=== PATIENT | female | born 1990 | race Caucasian/White ===

== ENCOUNTER 2023-02-05 23:40 | Emergency (ER) | payer MEDICAID, SELFPAY ==
[2023-02-05 23:46] VITALS: BP 137/77; PULSE 93; RESP 16; TEMP 36.8; O2SAT 100; BMI 35.2
[2023-02-05 23:58] LABS: Basophils % 0.4 %; Eosinophils # 0.3 10^3/uL (0.0-0.8); Eosinophils % 3.4 %; Hematocrit 38.2 % (36-47); Lymphocytes # 2.5 10^3/uL (0.8-4.8); Lymphocytes % 24.7 %; Mean Corpuscular Hemoglobin 28.6 pg (27-33); Mean Corpuscular Volume 86.8 fl (85-98); Monocytes # 0.6 10^3/uL (0.2-0.9); Monocytes % 6.5 %; Neutrophils % 64.7 %; Nucleated Red Blood Cells % 0 %; Platelet Count 291 10^3/cmm (157-399); Red Cell Distribution Width 12.5 % (12.1-15.1)
--- NOTE | 2023-02-06 00:02 | W.ED.PREGNAN ---
HPI - General: Chief complaint: OB/Uterine Contractions Stated complaint: vaginal bleeding, 8 weeks Time Seen by Provider: 02/05/23 23:45 Source: patient Mode of arrival: ambulatory Limitations: no limitations History of Present Illness: 32-year-old female currently 8 weeks states that she had some spotting throughout the day but tonight she had had a large amount of bleeding after a shower states she did pass clots as well she is having abdominal cramping she denies any vomiting or diarrhea denies any worsening proving factors. Date of Last Menstrual Period: 12/06/22 Associated symptoms: Reports abdominal pain; Deny headache(s), nausea or vomiting Related Data: : 1 Review of Systems Const: Denies: fever(s), chills, body aches or change in appetite ENMT: Denies: throat pain or dental pain Card: Denies: chest pain Resp: Denies: dyspnea GI: Reports: abdominal pain; Denies: nausea, vomiting or diarrhea : Reports: vaginal bleeding Musc: Denies: neck pain or back pain Skin/Breast: Denies: rash Neuro: Denies: headache(s) Psych: Denies: depression Margarito/Lymph: Denies: easy bruising All/Imm: Denies: urticaria [facility] ED Female Reproductive History: Date of last menstrual period: 12/06/22 : 1 Physical Exam Const: COMMON NORMALS: no acute distress, patient oriented x3 and healthy appearing HENMT: COMMON NORMALS: normocephalic and atraumatic HEAD & SCALP: normocephalic and atraumatic Neck/C-Spine: COMMON NORMALS: full ROM and supple Chest: COMMONS NORMALS: normal inspection of the chest Resp: COMMON NORMALS: normal respiratory effort Cardio: COMMON NORMALS: regular rate, regular rhythm and No murmurs present (Cardio) RATE: regular rate RHYTHM: regular rhythm GI: COMMON NORMALS: Normal to inspection, nondistended, normoactive bowel sounds present, Soft to palpation and no masses INSPECTION: Yes normal to inspection PALPATION: Yes Soft to palpation : OTHER: Cervix is closed no large amount of bleeding noted Extremity: COMMON NORMALS: normal to inspection and full ROM Neuro: COMMON NORMALS: patient oriented x3, moves all extremities and no focal motor deficits Psych: COMMON NORMALS: mental status grossly normal, Normal thought process present and cooperative THOUGHT PROCESS: Normal thought process present Skin: COMMON NORMALS: no rashes or lesions noted and no wounds GENERAL SKIN EXAM: no rashes or lesions noted Course Vital Signs: Vital signs: Vital Signs Temperature 98.3 F 02/05/23 23:46 Pulse Rate 93 02/05/23 23:46 Respiratory Rate 16 02/05/23 23:46 Blood Pressure 137/77 02/05/23 23:46 Pulse Oximetry 100 02/05/23 23:46 Oxygen Delivery Me thod Room Air 02/05/23 23:46 MDM - OB/Uterine Contractions Medical Decision Making Patient presents here with incomplete miscarriage she has had no heavy bleeding on her pelvic exam. Ultrasound showed yolk sac did see an irregular pole no heart rate noted she is to follow-up with her OB Dr. Myers and 3 to 5 days return if she has worsening bleeding. Medical Records I reviewed the patient's medical records. Lab Data I reviewed the patient's lab results. 02/05/23 23:50 Laboratory Results WBC 9.90 10^3/uL (3.29-11.43) 02/05/23 23:50 RBC 4.40 10^6/uL (3.85-5.65) 02/05/23 23:50 Hgb 12.60 g/dL (11.27-16.99) 02/05/23 23:50 Hct 38.2 % (36-47) 02/05/23 23:50 MCV 86.8 fl (85-98) 02/05/23 23:50 MCH 28.6 pg (27-33) 02/05/23 23:50 MCHC 33.0 g/dL (30-55) 02/05/23 23:50 RDW 12.5 % (12.1-15.1) 02/05/23 23:50 Plt Count 291 10^3/cmm (157-399) 02/05/23 23:50 MPV 10.0 fL (7.4-10.4) 02/05/23 23:50 Neut % (Auto) 64.7 % 02/05/23 23:50 Lymph % (Auto) 24.7 % 02/05/23 23:50 [place] % (Auto) 6.5 % 02/05/23 23:50 Eos % (Auto) 3.4 % 02/05/23 23:50 Baso % (Auto) 0.4 % 02/05/23 23:50 Neut # (Auto) 6.40 10^3/uL (1.8-7.7) 02/05/23 23:50 Lymph # (Auto) 2.5 10^3/uL (0.8-4.8) 02/05/23 23:50 [place] # (Auto) 0.6 10^3/uL (0.2-0.9) 02/05/23 23:50 Eos # (Auto) 0.3 10^3/uL (0.0-0.8) 02/05/23 23:50 Baso # (Auto) 0.0 10^3/uL (0.0-0.1) 02/05/23 23:50 Nucleated RBC % (auto) 0 % 02/05/23 23:50 Nucleated RBCs # 0.0 /100WBC 02/05/23 23:50 Ser , Semi-Qnt 77911.00 mIU/mL 02/05/23 23:50 Blood Type A Positive 02/05/23 23:50 Rho(D) Type Positive 02/05/23 23:50 Antibody Screen Negative 02/05/23 23:50 XR interpretation done by ED provider, pending radiology final review Discharge Plan Discharge Patient Disposition: Home Clinical Impression: Miscarriage Condition: Stable Discharge Orders: Discharge ED (Routine); Ordered 02/06/23 Ordered By: Vince Kerr Discharge Diet: Advance as tolerated Discharge Activity: Resume usual activity Patient Instructions: Miscarriage (ED) Coding Level of Care Code ED Radiation Control Specialist for Harsha Oakley
[2023-02-06 01:04] VITALS: BP 119/89; PULSE 81; RESP 16; O2SAT 98
--- NOTE | 2023-02-06 23:56 | USR_ITS ---
PROCEDURE INFORMATION: Exam: US Duplex Artery or Vein of the Abdominal and/or Reproductive Organs, Limited Ovaries Exam date and time: 02/06/2023 12:13 AM Age: 32 years old Clinical indication: Lmp or gestational age (in weeks): 9w 4 d by lmp; Antepartum complications; Bleeding; ; Patient HX: G1-p0 with spotting x 3 days, followed by large gush of blood 1 hour ago. ; Additional info: Miscarriage TECHNIQUE: Imaging protocol: Real-time duplex ultrasound scan of the arterial or venous flow with salazar scale, color Doppler flow and spectral waveform analysis with image documentation. Limited duplex exam focused on the ovaries. Duplex exam was performed to evaluate for torsion and other vascular conditions. COMPARISON: No relevant prior studies available. FINDINGS: Right ovary/adnexa: Normal duplex of the ovary. Normal Doppler waveforms and color flow. No evidence of ovarian torsion. Left ovary/adnexa: Normal duplex of the ovary. Normal Doppler waveforms and color flow. No evidence of ovarian torsion. PROCEDURE INFORMATION: Exam: US First Trimester, Transabdominal and US , Transvaginal Exam date and time: 02/06/2023 12:13 AM Age: 32 years old Clinical indication: Lmp or gestational age (in weeks): 9w 4 d by lmp; Antepartum complications; Bleeding; ; Patient HX: G1-p0 with spotting x 3 days, followed by large gush of blood 1 hour ago. ; Additional info: Miscarriage TECHNIQUE: Imaging protocol: Real-time transabdominal obstetrical ultrasound of the maternal pelvis and a first trimester , less than 14 weeks 0 days, with image documentation. Transvaginal imaging was used for better evaluation of the fetus, adnexa, and/or cervix. COMPARISON: No relevant prior studies available. FINDINGS: Gestation: Intrauterine gestation is mildly heterogenous. Yolk sac is unremarkable. Embryonic/ heart rate: Not clearly detected. Extra-embryonic membranes/Placenta: Unremarkable. No subchorionic bleed. Amniotic fluid: Amniotic fluid and extra-amniotic fluid is normal for gestational age. BIOMETRY: Gestational age (AUA): 6 weeks 5 days with MARY JO of 09/27/2023. pole measures 8 mm, 6 weeks 5 days. MATERNAL: Uterus: Unremarkable. Cervix: Unremarkable. Right ovary/adnexa: Unremarkable ovary. Left ovary/adnexa: Unremarkable ovary. Likely small corpus luteum cyst. Intraperitoneal space: No intraperitoneal free fluid. US/US OB <= 14 weeks fetus [id number] IMPRESSION: Normal duplex of the ovaries. No evidence of ovarian torsion. IMPRESSION: 1. Single potentially nonviable IUP as described, age of about 6 weeks 5 days. The findings are concerning but not definitive. 2. At this time, there is no definite cardiac activity identified. However, there is some color Doppler adjacent to an irregularly shaped pole with a mildly irregular appearance. Advise short-term ultrasound and OB follow-up.
== END 2023-02-06 01:06 | disposition home or self-care (01) ==
PROVIDERS: Emergency Provider Emergency Medicine
DX: O03.4 Incomplete spontaneous abortion without complication (principal)
CPT/HCPCS: 76801; 84702; 85025; 86850; 86900; 99284; E0352

== ENCOUNTER → 2023-02-11 15:20 | Outpatient (BNVA) | payer SELFPAY | PROVIDERS: Visit Provider Obstetrics & Gynecology | DX: O03.4 Incomplete spontaneous abortion without complication (principal) | CPT/HCPCS: 76817 ==

== ENCOUNTER 2023-02-11 17:09 | Emergency (ER) | payer MEDICAID, SELFPAY ==
[2023-02-11 17:26] VITALS: BP 146/74; PULSE 83; RESP 18; TEMP 36.7; O2SAT 99; BMI 39.0
--- NOTE | 2023-02-11 19:34 | W.ED.FEMALGU ---
HPI - Female Genitourinary General: Chief complaint: Abdominal Pain Stated complaint: puking.....just had a Miscarriage Time Seen by Provider: 02/11/23 19:34 Source: patient Mode of arrival: ambulatory Limitations: no limitations History of Present Illness: Patient is a 32-year-old female presents to ED today for evaluation of vaginal bleeding. Patient states she is currently having a miscarriage. She saw her OB provider Dr. Hooker earlier today around 3 PM and had an ultrasound performed. Ultrasound results below: US/US OB transvaginal [id number] IMPRESSION: 1. Findings are suspicious for failed intrauterine , but do not meet the strict criteria.? The previously visualized pole is not well visualized on today's study, and no heart tones are detected. 2. Anechoic fluid in the lower uterus and endocervical canal is most likely blood products. Patient states since the ultrasound bleeding has worsened. She has soaked approximately 3 pads over the past 3 to 4 hours and is passing clots. She is also having quite a bit of cramping/discomfort. MD elicited complaint: possible miscarriage Onset (ago): hour(s) Severity: moderate Quality of pain: cramping Consistency: constant Vaginal discharge: none Vaginal bleeding: moderate and POC/tissue Exacerbating factors: none Relieving factors: none Associated symptoms: Reports no associated symptoms; Deny abdominal pain, headache(s) or nausea Treatment prior to arrival: none Review of Systems Const: Denies: fever(s), chills, body aches, fatigue or malaise Card: Denies: chest pain Resp: Denies: dyspnea GI: Denies: abdominal pain, nausea, vomiting or diarrhea : Reports: vaginal bleeding and pelvic pain; Denies: flank pain, difficulty voiding, dysuria, urinary frequency, urinary urgency or urinary hesitancy Musc: Denies: back pain Neuro: Denies: headache(s) or dizziness PFSH ED PFSH: Family History Grandmother Breast cancer Mother Hyperlipidemia Hypertension Denies family history of Colon cancer Ovarian cancer Diabetes Heart disease Uterine cancer Thyroid disease Stroke Physical Exam Const: COMMON NORMALS: no acute distress, patient oriented x3, no limitations, alert and well nourished GENERAL APPEARANCE: cooperative ORIENTATION/CONSCIOUSNESS: Yes awake, Yes oriented to person, Yes oriented to place and Yes oriented to time Resp: COMMON NORMALS: normal respiratory effort and clear to auscultation bilaterally AUSCULTATION: clear to auscultation bilaterally Cardio: COMMON NORMALS: regular rate and regular rhythm RATE: regular rate RHYTHM: regular rhythm GI: COMMON NORMALS: Normal to inspection, nondistended, normoactive bowel sounds present, Soft to palpation, No hepatosplenomegaly present and no masses INSPECTION: Yes normal to inspection AUSCULTATION: Yes normoactive bowel sounds PALPATION: Yes Soft to palpation, Yes Tenderness to palpation present (GI) (tender lower abdomen/pelvis), No Guarding due to palpation present (GI), No Rigid due to palpation and Yes No hepatosplenomegaly present : SPECULUM EXAM - CERVIX: Yes Cervical os open, Yes Tissue present in the cervical os (removed) and Yes Cervical bleeding (mild) OB/EXTERNAL & SPECULUM: Cervical os open OTHER: large clot/POC in vaginal canal along with large piece in cervical os that was cleared Extremity: GENERAL: Yes normal exam except as noted Neuro: NEVILLE COMA SCALE: document GCS findings Neville coma scale eye opening: Spontaneous [place] coma scale verbal response: Orientated Neville coma scale motor response: Obey commands Neville coma scale total score: 15 COMMON NORMALS: patient oriented x3 SENSORIUM/ORIENTATION: Yes alert, Yes oriented to person, Yes oriented to place and Yes oriented to time Skin: COMMON NORMALS: no rashes or lesions noted GENERAL SKIN EXAM: no rashes or lesions noted Course Vital Signs: Vital signs: Vital Signs Temperature 98.0 F 02/11/23 17:26 Pulse Rate 74 02/11/23 20:42 Respiratory Rate 16 02/11/23 20:17 Blood Pressure 127/69 02/11/23 20:42 Pulse Oximetry 98 02/11/23 20:17 Oxygen Delivery Me thod Room Air 02/11/23 20:17 MDM - Female Medical Decision Making Patient's vital signs are stable. Orthostatics are negative. Hemoglobin today is 12.9 which is higher than what it was on her last visit. Clots/POC were removed from vaginal canal and cervical os. Bleeding has slowed. hCG is roughly 9000 down from [id number]. At this time patient is stable for discharge. I would like her to contact her OB provider tomorrow for further instructions on follow-up. Strict return to ED precautions given. She will be provided a small amount of pain medication to help with her cramping/discomfort. Lab Data 02/11/23 19:41 02/11/23 19:41 Laboratory Results WBC 15.15 10^3/uL (3.29-11.43) H 02/11/23 19:41 RBC 4.54 10^6/uL (3.85-5.65) 02/11/23 19:41 Hgb 12.90 g/dL (11.27-16.99) 02/11/23 19:41 Hct 38.8 % (36-47) 02/11/23 19:41 MCV 85.5 fl (85-98) 02/11/23 19:41 MCH 28.4 pg (27-33) 02/11/23 19:41 MCHC 33.2 g/dL (30-55) 02/11/23 19:41 RDW 12.4 % (12.1-15.1) 02/11/23 19:41 Plt Count 289 10^3/cmm (157-399) 02/11/23 19:41 MPV 10.2 fL (7.4-10.4) 02/11/23 19:41 Neut % (Auto) 88.2 % 02/11/23 19:41 Lymph % (Auto) 6.9 % 02/11/23 19:41 [place] % (Auto) 4.0 % 02/11/23 19:41 Eos % (Auto) 0.3 % 02/11/23 19:41 Baso % (Auto) 0.2 % 02/11/23 19:41 Neut # (Auto) 13.36 10^3/uL (1.8-7.7) H 02/11/23 19:41 Lymph # (Auto) 1.0 10^3/uL (0.8-4.8) 02/11/23 19:41 [place] # (Auto) 0.6 10^3/uL (0.2-0.9) 02/11/23 19:41 Eos # (Auto) 0.1 10^3/uL (0.0-0.8) 02/11/23 19:41 Baso # (Auto) 0.0 10^3/uL (0.0-0.1) 02/11/23 19:41 Nucleated RBC % (auto) 0 % 02/11/23 19:41 Nucleated RBCs # 0.0 /100WBC 02/11/23 19:41 Sodium 136 mmol/L (136-145) 02/11/23 19:41 Potassium 3.8 mmol/L (3.5-5.1) 02/11/23 19:41 Chloride 102 mmol/L (98-107) 02/11/23 19:41 Carbon Dioxide 22 mmol/L (22-29) 02/11/23 19:41 Anion Gap 15.8 (5-19) 02/11/23 19:41 BUN 12 mg/dL (6-20) 02/11/23 19:41 Creatinine 0.7 mg/dL (0.5-0.9) 02/11/23 19:41 GFR Calculation 97.0 mL/min (90-130) 02/11/23 19:41 Glucose 87 mg/dL (65-115) 02/11/23 19:41 Calculated Osmolality 281 mOsm/kg (285-295) L 02/11/23 19:41 Calcium 9.4 mg/dL (8.5-10.5) 02/11/23 19:41 Total Bilirubin 0.3 mg/dL (0.15-1.2) 02/11/23 19:41 AST 20 U/L (0-32) 02/11/23 19:41 ALT 16 U/L (0-33) 02/11/23 19:41 Alkaline Phosphatase 109 U/L (35-105) H 02/11/23 19:41 Total Protein 8.2 g/dL (6.6-8.7) 02/11/23 19:41 Albumin 4.8 g/dL (3.5-5.2) 02/11/23 19:41 Globulin 3.4 g/dL (1.3-4.6) 02/11/23 19:41 Ser , Semi-Qnt 9297.00 mIU/mL 02/11/23 19:41 No radiology studies performed this visit Discharge Plan Discharge Patient Disposition: Home Clinical Impression: Miscarriage Condition: Stable Prescriptions: New hydrocodone-acetaminophen 5-325 mg tablet 1 tab PO Q6H PRN (Reason: pain) Qty: 10 0RF No Action No Known Home Medications Discharge Orders: Discharge ED (Routine); Ordered 02/11/23 Ordered By: Jaimee Whyte Patient Instructions: Miscarriage (ED) Activity Restrictions/Additional Instructions: As we discussed I want you to contact Dr. Hooker tomorrow for further instructions on follow-up. You need to return to the emergency department for continued severe bleeding (soaking more than 1 pad an hour), lightheadedness, dizziness, passing out episodes, or any other concerns you may have. Coding Level of Care Code ED Professional Programmer Analyst for Harsha Oakley
[2023-02-11] MEDS: ondansetron 2 mg/ML SDV 2 mL 4 MG IVP (20:11)
[2023-02-11] MEDS: sodium chloride 0.9% 1,000 ML 999 ML IV (20:11)
[2023-02-11 20:12] VITALS: RESP 18; O2SAT 100
[2023-02-11] MEDS: morphine 4 mg/mL SDV 1 mL IVP (20:12)
[2023-02-11 20:17] VITALS: BP 141/82; PULSE 85; RESP 16; O2SAT 98; O2SAT 99
[2023-02-11 20:26] LABS: Basophils % 0.2 %; Eosinophils # 0.1 10^3/uL (0.0-0.8); Eosinophils % 0.3 %; Hematocrit 38.8 % (36-47); Lymphocytes % 6.9 %; Mean Corpuscular HGB Conc 33.2 g/dL (30-55); Mean Corpuscular Hemoglobin 28.4 pg (27-33); Mean Corpuscular Volume 85.5 fl (85-98); Mean Platelet Volume 10.2 fL (7.4-10.4); Monocytes # 0.6 10^3/uL (0.2-0.9); Neutrophils # 13.36 10^3/uL (1.8-7.7); Neutrophils % 88.2 %; Nucleated Red Blood Cells % 0 %; Platelet Count 289 10^3/cmm (157-399); Red Blood Count 4.54 10^6/uL (3.85-5.65); Red Cell Distribution Width 12.4 % (12.1-15.1); White Blood Count 15.15 10^3/uL (3.29-11.43)
[2023-02-11 20:42] VITALS: BP 121/81; BP 127/69; BP 132/73; PULSE 74; PULSE 75; PULSE 77
[2023-02-11 20:57] LABS: Alanine Aminotransferase 16 U/L (0-33); Albumin Level 4.8 g/dL (3.5-5.2); Alkaline Phosphatase 109 U/L (35-105); Anion Gap 15.8 (5-19); Aspartate Amino Transferase 20 U/L (0-32); Blood Urea Nitrogen 12 mg/dL (6-20); Calcium 9.4 mg/dL (8.5-10.5); Carbon Dioxide 22 mmol/L (22-29); Chloride 102 mmol/L (98-107); Globulin 3.4 g/dL (1.3-4.6); Glucose 87 mg/dL (65-115); Osmolality Calculated 281 mOsm/kg (285-295); Potassium 3.8 mmol/L (3.5-5.1); Sodium 136 mmol/L (136-145); Total Bilirubin 0.3 mg/dL (0.15-1.2); Total Protein 8.2 g/dL (6.6-8.7)
[2023-02-11] MEDS: HYDROcodone-acetaminophen 5-325 mg Tablet 2 TAB PO (21:24)
[2023-02-11 21:28] VITALS: BP 141/82; PULSE 85; RESP 16; TEMP 36.7; O2SAT 98
== END 2023-02-11 21:29 | disposition home or self-care (01) ==
PROVIDERS: Emergency Provider Physician Assistant
DX: O03.9 Complete or unspecified spontaneous abortion without complication (principal)
CPT/HCPCS: 36415; 80053; 84702; 85025; 96361; 96374; 96375; 99284; J2270; J2405; J7030

== ENCOUNTER → 2023-02-18 15:53 | Outpatient (BNVA) | payer MEDICAID, SELFPAY | PROVIDERS: Visit Provider Obstetrics & Gynecology | DX: O03.9 Complete or unspecified spontaneous abortion without complication (principal) | CPT/HCPCS: 84702 ==

== ENCOUNTER → 2023-03-19 15:58 | Outpatient (BNVA) | payer OTHER, MEDICAID, SELFPAY | PROVIDERS: Visit Provider Obstetrics & Gynecology | DX: O03.9 Complete or unspecified spontaneous abortion without complication (principal) | CPT/HCPCS: 81025 ==

== ENCOUNTER 2025-01-05 01:08 | Inpatient (IN) | payer OTHER, SELFPAY ==
[2025-01-05] VITALS (20 sets, daily range): BP systolic 109–164; BP diastolic 61–91; PULSE 73–105; RESP 16–18; TEMP 36.6–36.7; O2SAT 96–100; BMI 40.6
[2025-01-05 02:50] LABS: Hematocrit 39.9 % (36-47); Hemoglobin 12.90 g/dL (11.27-16.99); Mean Corpuscular HGB Conc 32.3 g/dL (30-55); Mean Corpuscular Hemoglobin 27.8 pg (27-33); Mean Corpuscular Volume 86.0 fl (85-98); Nucleated Red Blood Cells % 0 %; Platelet Count 203 10^3/cmm (157-399); Red Blood Count 4.64 10^6/uL (3.85-5.65); White Blood Count 11.92 10^3/uL (3.29-11.43)
[2025-01-05] MEDS: morphine 4 mg/mL SDV 1 mL IVP (02:59)
[2025-01-05] MEDS: ondansetron 2 mg/ML SDV 2 mL 4 MG IVP (02:59)
[2025-01-05 03:13] LABS: Alanine Aminotransferase 18 U/L (0-33); Albumin Level 3.9 g/dL (3.5-5.2); Alkaline Phosphatase 180 U/L (35-105); Anion Gap 17.8 (5-19); Aspartate Amino Transferase 25 U/L (0-32); Blood Urea Nitrogen 13 mg/dL (6-20); Calcium 10.8 mg/dL (8.5-10.5); Carbon Dioxide 19 mmol/L (22-29); Chloride 102 mmol/L (98-107); Creatinine Clr Calc Pharmacy 116.3999; Globulin 3.1 g/dL (1.3-4.6); Glucose 88 mg/dL (65-115); Lipase 38 U/L (13-60); Osmolality Calculated 280 mOsm/kg (285-295); Potassium 3.8 mmol/L (3.5-5.1); Sodium 135 mmol/L (136-145); Total Protein 7.0 g/dL (6.6-8.7)
[2025-01-05 03:44] LABS: HCG, Serum Qual Positive (Negative)
[2025-01-05] MEDS: HYDROmorphone 0.5 MG/0.5 ML INJ 1 MG IVP (03:44)
--- NOTE | 2025-01-05 03:52 | W.ED.ABDPA2 ---
HPI - Abdominal Pain General: Chief Complaint: Abdominal Pain Stated Complaint: ABD Pain Time Seen by Provider: 01/05/25 02:28 History of Present Illness: 34-year-old female awoke around 23:45 with mild lower abdominal pain after using the bathroom. Pain intensified to 9/10 by the second awakening (? 01:30), now described as diffuse stabbing pressure accompanied by diaphoresis and nausea with urge to vomit. No prior similar episodes. Denies [id number] radiation, prior kidney stones, or surgeries. Menstrual cycles regular until missing the current month; states no known . Reports chronic intermittent back pain unrelated to current episode. No fever, chest pain, dyspnea, or urinary symptoms reported during interview. Related Data Home Medications ?Medication ?Instructions ?Recorded ?Confirmed No Known Home Medications 02/11/23 03/19/23 Allergies Allergy/AdvReac Type Severity Reaction Status Date / Time No Known Allergies Allergy Verified 02/18/23 15:03 PFS ED PFSH: Family History Grandmother Breast cancer Mother Hyperlipidemia Hypertension Denies family history of Colon cancer Ovarian cancer Diabetes Heart disease Uterine cancer Thyroid disease Stroke Physical Exam Const: COMMON NORMALS: no acute distress, patient oriented x3 and alert HENMT: COMMON NORMALS: normocephalic and atraumatic HEAD & SCALP: normocephalic and atraumatic Eye: COMMON NORMALS: Equal, round and reactive pupils present, EOMs intact bilaterally and no scleral icterus PUPIL: Yes Equal, round and reactive pupils present Resp: COMMON NORMALS: normal respiratory effort and No retractions Cardio: COMMON NORMALS: regular rate, regular rhythm and No murmurs present (Cardio) RATE: regular rate RHYTHM: regular rhythm GI: OTHER: Soft, no focal tenderness, protuberant lower abdomen concerning for possible with suspected fundal height above the umbilicus. : OTHER: Exam deferred. Neuro: COMMON NORMALS: patient oriented x3 SENSORIUM/ORIENTATION: Yes alert Skin: COMMON NORMALS: no rashes or lesions noted GENERAL SKIN EXAM: no rashes or lesions noted Course Vital Signs: Vital signs: Vital Signs Temperature 97.8 F 01/05/25 01:16 Pulse Rate 73 01/05/25 03:00 Respiratory Rate 18 01/05/25 01:16 Blood Pressure 164/86 01/05/25 03:00 Pulse Oximetry 99 01/05/25 03:00 Oxygen Delivery Me thod Room Air 01/05/25 03:00 MDM - Abdominal Pain Medical Decision Making Patient remained hemodynamically stable throughout ED course. She had proximal-isms of lower abdominal pain which she described as pressure. hCG test is positive despite her stating that she has had monthly menstrual cycles on a regular basis. Bedside ultrasound confirms a single intrauterine which appears to be advanced but no definitive measurements were taken to try and ascertain gestational age. While still undifferentiated, she was given morphine and then Dilaudid as well as Zofran. CT scan was initially ordered but never performed pending hCG test results. She will be taken to OB for further observation and care as her proximal-isms of pain seem to be fairly regular which could imply she is having regular contractions and could be in labor. Lab Data 01/05/25 02:40 01/05/25 02:40 Labs/Radiology: Laboratory Results WBC 11.92 10^3/uL (3.29-11.43) H 01/05/25 02:40 RBC 4.64 10^6/uL (3.85-5.65) 01/05/25 02:40 Hgb 12.90 g/dL (11.27-16.99) 01/05/25 02:40 Hct 39.9 % (36-47) 01/05/25 02:40 MCV 86.0 fl (85-98) 01/05/25 02:40 MCH 27.8 pg (27-33) 01/05/25 02:40 MCHC 32.3 g/dL (30-55) 01/05/25 02:40 RDW 13.2 % (12.1-15.1) 01/05/25 02:40 Plt Count 203 10^3/cmm (157-399) 01/05/25 02:40 MPV 11.7 fL (7.4-10.4) H 01/05/25 02:40 Neut % (Auto) 73.6 % 01/05/25 02:40 Lymph % (Auto) 16.5 % 01/05/25 02:40 [place] % (Auto) 7.6 % 01/05/25 02:40 Eos % (Auto) 0.8 % 01/05/25 02:40 Baso % (Auto) 0.3 % 01/05/25 02:40 Neut # (Auto) 8.77 10^3/uL (1.8-7.7) H 01/05/25 02:40 Lymph # (Auto) 2.0 10^3/uL (0.8-4.8) 01/05/25 02:40 [place] # (Auto) 0.9 10^3/uL (0.2-0.9) 01/05/25 02:40 Eos # (Auto) 0.1 10^3/uL (0.0-0.8) 01/05/25 02:40 Baso # (Auto) 0.0 10^3/uL (0.0-0.1) 01/05/25 02:40 Nucleated RBC % (auto) 0 % 01/05/25 02:40 Nucleated RBCs # 0.0 /100WBC 01/05/25 02:40 Sodium 135 mmol/L (136-145) L 01/05/25 02:40 Potassium 3.8 mmol/L (3.5-5.1) 01/05/25 02:40 Chloride 102 mmol/L (98-107) 01/05/25 02:40 Carbon Dioxide 19 mmol/L (22-29) L 01/05/25 02:40 Anion Gap 17.8 (5-19) 01/05/25 02:40 BUN 13 mg/dL (6-20) 01/05/25 02:40 Creatinine 0.7 mg/dL (0.5-0.9) 01/05/25 02:40 GFR Calculation 95.8 mL/min (90-130) 01/05/25 02:40 Glucose 88 mg/dL (65-115) 01/05/25 02:40 Calculated Osmolality 280 mOsm/kg (285-295) L 01/05/25 02:40 Calcium 10.8 mg/dL (8.5-10.5) H 01/05/25 02:40 Total Bilirubin 0.2 mg/dL (0.15-1.2) 01/05/25 02:40 AST 25 U/L (0-32) 01/05/25 02:40 ALT 18 U/L (0-33) 01/05/25 02:40 Alkaline Phosphatase 180 U/L (35-105) H 01/05/25 02:40 Total Protein 7.0 g/dL (6.6-8.7) 01/05/25 02:40 Albumin 3.9 g/dL (3.5-5.2) 01/05/25 02:40 Globulin 3.1 g/dL (1.3-4.6) 01/05/25 02:40 Lipase 38 U/L (13-60) 01/05/25 02:40 HCG, Qual Positive (Negative) H 01/05/25 02:40 No radiology studies performed this visit Discharge Plan Discharge Patient Disposition: Placed in Observation Clinical Impression: and not yet delivered Coding Level of Care Code ED Wired Sweatband Cutter for Harsha Oakley
--- NOTE | 2025-01-05 04:05 | PM.OBGYHP ---
Providers/Chief Complaint Admitting Physician: Sigifredo Hooker MD Primary ELECTRIC MOTORS SALESPERSON: none Primary Care Provider: none Chief Complaint: ABD Pain HPI ELECTRIC MOTORS SALESPERSON History of Present Illness Kristel Vela is a 34 year old female No care Unknow LMP Unknow gestational age Never saw any providers during this Patient states she did not even know she was Went to ER c/o abdominal pain Found to be Transferred to L&D for further evaluation In L&D Patient c/o painful uterine contractions Cervix: 7 cm / -1 station I arrived in L&D Patient with painful contractions Cervix: 9 cm / -1 station / cephalic Present Details : 1 Para: 0 Labs Rubella: Immune RPR: Results in [place] GBS: Unknown Medications/Allergies Home Medications ?Medication ?Instructions ?Recorded ?Confirmed ?Last Taken ?Type No Known Home Medications 02/11/23 01/05/25 Unknown History Allergies Allergy/AdvReac Type Severity Reaction Status Date / Time No Known Allergies Allergy Verified 01/05/25 06:30 PFSH ELECTRIC MOTORS SALESPERSON PFSH: Family History Grandmother Breast cancer Mother Hyperlipidemia Hypertension Denies family history of Colon cancer Ovarian cancer Diabetes Heart disease Uterine cancer Thyroid disease Stroke History History History 1 Term 0 0 Miscarriages/Ectopic 1 Living Children 0 Vitals/I&O/Wt Last Vital Signs Temp 98.0 F 01/05/25 21:17 Pulse 75 01/05/25 21:17 Resp 16 01/05/25 21:17 BP 131/70 01/05/25 21:17 Pulse Ox 97 01/05/25 21:17 O2 Del Method Room Air 01/05/25 21:17 Weight last 48 hrs Weight 208 lb Weight 208 lb 6.4 oz Physical Exam Narrative: Weight 208 lbs; 5? VS normal General awake, alert Cervix: 9 cm / -1 station / cephalic External monitor: regular [facility] heart tracing good variability Data 01/05/25 16:20 01/05/25 02:40 Results Labs OB ([facility]): Blood Type A Positive 01/05/25 Antibody Screen Negative 01/05/25 Hct, (36-47) 33.4 % L 01/05/25 Hgb, (11.27-16.99) 11.10 g/dL L 01/05/25 Rho(D) Type Rh positive 01/05/25 Plt Count, (157-399) 169 10^3/cmm 01/05/25 Hep Bs Antigen, (Nonreactive) Non-reactive 01/05/25 Rubella IgG Antibody, (0.0-10.0) 39.6 IU/mL H 01/05/25 RPR, (Nonreactive) Nonreactive 01/05/25 HIV 1&2 Ab & HIV 1 Ag, (Non-Reactiv) Non-reactive 01/05/25 HCG, Qual, (Negative) Positive H 01/05/25 Micro Urine Specimen 01/05/25 A&P Assessment and plan 1. : No care Unknown gestational age Advanced cervical dilatation Anticipate vaginal delivery PDMP PDMP Reviewed: Not Reviewed Attestations Medical Necessity Statement*: patient with no care, presented with active labor Coding Level of Care Code Acute Code for Chg Fwd Diagnoses Z34.90
[2025-01-05 04:17] LABS: Hematocrit 39.2 % (36-47); Hemoglobin 12.80 g/dL (11.27-16.99); Mean Corpuscular HGB Conc 32.7 g/dL (30-55); Mean Corpuscular Hemoglobin 28.1 pg (27-33); Mean Corpuscular Volume 86.2 fl (85-98); Nucleated Red Blood Cells % 0 %; Platelet Count 180 10^3/cmm (157-399); Red Blood Count 4.55 10^6/uL (3.85-5.65); White Blood Count 12.86 10^3/uL (3.29-11.43)
--- NOTE | 2025-01-05 04:40 | PM.DELIVERY ---
Delivery Note: Date of delivery: January 05, 2025 Pre-delivery diagnoses: no care unknown gestational age active labor cervix at 9 cm Post-delivery diagnoses: no care unknown gestational age active labor cervix at 9 cm vaginal delivery second-degree perineal laceration, repaired Procedure: vaginal delivery second-degree perineal laceration, repaired Op report anesthesia: None Delivering Physician: Sigifredo Hooker MD Estimated blood loss (mL): 300 Findings: , male infant Sas Statistical Programmer in attendance Cord gases and blood obtained Normal placenta and cord Second-degree perineal laceration repaired EBL: 300 cc No complications Delivery: vaginal Post-Delivery Status: good History History History 1 Term 0 0 Miscarriages/Ectopic 1 Living Children 0 A&P Assessment and plan 1. Vaginal delivery: PDMP PDMP Reviewed: Not Reviewed Coding Level of Care Code Acute Code for Chg Fwd Diagnoses Vaginal delivery O80
--- NOTE | 2025-01-05 06:27 | PC.NURSE ---
estimated to be between [address] Whittington
--- NOTE | 2025-01-05 08:44 | PC.NURSE ---
King from [facility] at the bedside
[2025-01-05 09:11] LABS: HIV 1 & 2 Antigen Non-Reactive (Non-Reactiv); Hepatitis B Surface Antigen Non-Reactive (Nonreactive)
[2025-01-05 10:05] LABS: Rapid Plasma Reagin Syphilis Nonreactive (Nonreactive)
[2025-01-05 11:37] LABS: Add Urine Microscopic? YES; UA Manual Slide Review YES
[2025-01-05 12:41] LABS: Neisseria Gonorrhea NOT DETECTED (Negative)
[2025-01-05] MEDS: benzocaine-menthol 78 gm Canister 1 SPRAY TOPICAL (14:54)
[2025-01-05 16:42] LABS: Hematocrit 33.4 % (36-47); Hemoglobin 11.10 g/dL (11.27-16.99); Mean Corpuscular HGB Conc 33.2 g/dL (30-55); Mean Corpuscular Hemoglobin 28.7 pg (27-33); Mean Corpuscular Volume 86.3 fl (85-98); Platelet Count 169 10^3/cmm (157-399); Red Blood Count 3.87 10^6/uL (3.85-5.65); White Blood Count 14.56 10^3/uL (3.29-11.43)
[2025-01-06 05:20] VITALS: BP 111/68; PULSE 85; RESP 16; O2SAT 97
[2025-01-06 08:00] VITALS: BP 148/89; PULSE 89; RESP 18; TEMP 37; O2SAT 98
[2025-01-06] MEDS: PRENATAL VIT NO.130/IRON/FOLIC 1 EACH TABLET PO (09:44)
--- NOTE | 2025-01-06 13:05 | P.DS_ITS ---
Discharge Providers [employer] Date of Admission: 01/05/25 04:00 Date of Discharge: 01/06/25 Attending Provider at Admission: Sigifredo Hooker MD Attending Provider at Discharge: Sigifredo Hooker MD Consults: none Diagnoses at Discharge Discharge Diagnosis 1. Vaginal delivery: Details from hospital stay: 34 y.o. No care Unknown LMP Unknown gestational age Never saw any providers during this Patient states she did not even know she was Went to ER c/o abdominal pain Found to be Transferred to L&D for further evaluation In L&D Patient c/o painful uterine contractions Cervix: 9 cm / -1 station / cephalic patient proceeded to deliver vaginally a viable infant, estimated to be approximately 36 weeks A second-degree perineal laceration was repaired patient did well and was discharged to home on the first day Reason for Visit Reason for Visit: ABD Pain Brief History: 34 y.o. No care Unknown LMP Unknown gestational age Never saw any providers during this Patient states she did not even know she was Went to ER c/o abdominal pain Hospital Course Hospital Course 34 y.o. No care Unknown LMP Unknown gestational age Never saw any providers during this Patient states she did not even know she was Went to ER c/o abdominal pain Found to be Transferred to L&D for further evaluation In L&D Patient c/o painful uterine contractions Cervix: 9 cm / -1 station / cephalic patient proceeded to deliver vaginally a viable , estimated to be approximately 36 weeks A second-degree perineal laceration was repaired patient did well and was discharged to home on the first day Information Peripartum Data: Infant Delivery Method: Vaginal Laceration description: Perineal - 2nd Degree Episiotomy description: None complications: none Physical Exam Narrative: afebrile, VS normal comfortable, awake, alert Lungs: clear Cor: RRR Abd: soft, nontender. fundus firm Ext: no edema; nontender History History History 1 Term 0 0 Miscarriages/Ectopic 1 Living Children 0 Discharge Data Studies Completed and Pending Laboratory Results WBC 14.56 10^3/uL (3.29-11.43) H 01/05/25 16:20 RBC 3.87 10^6/uL (3.85-5.65) 01/05/25 16:20 Hgb 11.10 g/dL (11.27-16.99) L 01/05/25 16:20 Hct 33.4 % (36-47) L 01/05/25 16:20 MCV 86.3 fl (85-98) 01/05/25 16:20 MCH 28.7 pg (27-33) 01/05/25 16:20 MCHC 33.2 g/dL (30-55) 01/05/25 16:20 RDW 13.2 % (12.1-15.1) 01/05/25 16:20 Plt Count 169 10^3/cmm (157-399) 01/05/25 16:20 MPV 11.9 fL (7.4-10.4) H 01/05/25 16:20 Neut % (Auto) 81.3 % 01/05/25 04:02 Lymph % (Auto) 10.9 % 01/05/25 04:02 Bond % (Auto) 5.6 % 01/05/25 04:02 Eos % (Auto) 0.3 % 01/05/25 04:02 Baso % (Auto) 0.3 % 01/05/25 04:02 Neut # (Auto) 10.45 10^3/uL (1.8-7.7) H 01/05/25 04:02 Lymph # (Auto) 1.4 10^3/uL (0.8-4.8) 01/05/25 04:02 Bond # (Auto) 0.7 10^3/uL (0.2-0.9) 01/05/25 04:02 Eos # (Auto) 0.0 10^3/uL (0.0-0.8) 01/05/25 04:02 Baso # (Auto) 0.0 10^3/uL (0.0-0.1) 01/05/25 04:02 Nucleated RBC % (auto) 0 % 01/05/25 04:02 Nucleated RBCs # 0.0 /100WBC 01/05/25 04:02 Sodium 135 mmol/L (136-145) L 01/05/25 02:40 Potassium 3.8 mmol/L (3.5-5.1) 01/05/25 02:40 Chloride 102 mmol/L (98-107) 01/05/25 02:40 Carbon Dioxide 19 mmol/L (22-29) L 01/05/25 02:40 Anion Gap 17.8 (5-19) 01/05/25 02:40 BUN 13 mg/dL (6-20) 01/05/25 02:40 Creatinine 0.7 mg/dL (0.5-0.9) 01/05/25 02:40 GFR Calculation 95.8 mL/min (90-130) 01/05/25 02:40 Glucose 88 mg/dL (65-115) 01/05/25 02:40 Calculated Osmolality 280 mOsm/kg (285-295) L 01/05/25 02:40 Calcium 10.8 mg/dL (8.5-10.5) H 01/05/25 02:40 Total Bilirubin 0.2 mg/dL (0.15-1.2) 01/05/25 02:40 AST 25 U/L (0-32) 01/05/25 02:40 ALT 18 U/L (0-33) 01/05/25 02:40 Alkaline Phosphatase 180 U/L (35-105) H 01/05/25 02:40 Total Protein 7.0 g/dL (6.6-8.7) 01/05/25 02:40 Albumin 3.9 g/dL (3.5-5.2) 01/05/25 02:40 Globulin 3.1 g/dL (1.3-4.6) 01/05/25 02:40 Lipase 38 U/L (13-60) 01/05/25 02:40 HCG, Qual Cancelled 01/05/25 02:40 HCG, Qual Positive (Negative) H 01/05/25 02:40 Urine Color Red (Yellow) A 01/05/25 11:05 Urine Appearance Turbid (CLEAR) A 01/05/25 11:05 Urine pH Not Reportable 01/05/25 11:05 Ur Specific [place] Not Reportable 01/05/25 11:05 Urine Protein Not Reportable 01/05/25 11:05 Urine Glucose (UA) Not Reportable 01/05/25 11:05 Urine Ketones Not Reportable 01/05/25 11:05 Urine Blood Not Reportable 01/05/25 11:05 Urine Nitrate Not Reportable 01/05/25 11:05 Urine Bilirubin Not Reportable 01/05/25 11:05 Urine Urobilinogen Not Reportable 01/05/25 11:05 Ur Leukocyte Esterase Not Reportable 01/05/25 11:05 Urine RBC Too numerous to cnt /hpf (0-2) H 01/05/25 11:05 Urine WBC 15-25 /hpf (0-5) H 01/05/25 11:05 Ur Squamous Epith Cells 0-4 /hpf (0-5) H 01/05/25 11:05 Calcium Oxalate Crystal 0-4 /hpf H 01/05/25 11:05 Amorphous Sediment Not Reportable 01/05/25 11:05 Urine Bacteria Trace /hpf (NONE) 01/05/25 11:05 RPR Nonreactive (Nonreactive) 01/05/25 08:02 C. trachomatis (PCR) Not detected (Negative) 01/05/25 11:05 Hep Bs Antigen Non-reactive (Nonreactive) 01/05/25 08:02 HIV 1&2 Ab & HIV 1 Ag Non-reactive (Non-Reactiv) 01/05/25 08:02 HIV 1&2 Antibody Non-reactive (Non-Reactiv) 01/05/25 08:02 N. gonorrhoeae (PCR) Not detected (Negative) 01/05/25 11:05 Rubella IgG Antibody 39.6 IU/mL (0.0-10.0) H 01/05/25 08:02 Blood Type A Positive 01/05/25 04:02 Rho(D) Type Rh positive 01/05/25 04:02 Antibody Screen Negative 01/05/25 04:02 Procedures Performed vaginal delivery Vitals Last Vital Signs Temp 98.1 F 01/06/25 14:55 Pulse 85 01/06/25 14:55 Resp 18 01/06/25 14:55 BP 130/91 01/06/25 14:55 Pulse Ox 98 01/06/25 14:55 O2 Del Method Room Air 01/06/25 08:00 Results Labs OB ([facility]): Blood Type A Positive 01/05/25 Antibody Screen Negative 01/05/25 Hct, (36-47) 33.4 % L 01/05/25 Hgb, (11.27-16.99) 11.10 g/dL L 01/05/25 Rho(D) Type Rh positive 01/05/25 Plt Count, (157-399) 169 10^3/cmm 01/05/25 Hep Bs Antigen, (Nonreactive) Non-reactive 01/05/25 Rubella IgG Antibody, (0.0-10.0) 39.6 IU/mL H 5 RPR, (Nonreactive) Nonreactive 01/05/25 HIV 1&2 Ab & HIV 1 Ag, (Non-Reactiv) Non-reactive HCG, Qual, (Negative) Positive H 01/05/25 Micro Urine Specimen 01/05/25 Discharge Plan Discharge Patient Disposition: Home Condition: Stable Prescriptions: Continued No Known Home Medications Discharge Order = DC NOW: Discharge Order (Routine); Ordered 01/06/25 Ordered By: Sigifredo Hooker Referrals: Deidra Ovalle NP [Nurse Practitioner, [employer]] - 01/20/25 12:45 pm Discharge Diet: Usual diet Discharge Activity: Resume usual activity Patient Instructions: Depression (DC), Opioid Safety (DC), Preeclampsia and Eclampsia After Delivery (GEN), Hemorrhage (DC), OB Discharge Report, OB Food/Drug Interaction Guide, Opioid Safety, OB Home Care, OB Vaginal Deliveries - [facility], Patient Portal & [facility] Instructions, Abnormal Bleeding Activity Restrictions/Additional Instructions: Please return to be seen in OB clinic in 1-2 weeks to establish care due to no care 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
[2025-01-06 14:55] VITALS: BP 130/91; PULSE 85; RESP 18; TEMP 36.7; O2SAT 98
== END 2025-01-06 14:23 | disposition home or self-care (01) | DRG 807 ==
LOC: ER 03:56 → OBGYN 04:01
PROVIDERS: Admitting Provider Obstetrics & Gynecology; Emergency Provider Student in an Organized Health Care Education/Training Program; Visit Provider Obstetrics & Gynecology
DX: O60.14X0 Preterm labor third trimester with preterm delivery third trimester, not applicable or unspecified (principal); Z37.0 Single live birth; O70.1 Second degree perineal laceration during delivery; Z3A.36 36 weeks gestation of pregnancy
CPT/HCPCS: 36415; 36592; 59025; 59409; 80053; 81001; 83690; 84703; 85025; 85027; 86592; 86762; 86850; 86900; 87086; 87340; 87491; 87591; 87806; 96374; 96375; 99211; 99285; J1171; J1885; J2270; J2405; J9999

== ENCOUNTER → 2025-02-16 13:32 | Outpatient (BNVA) | payer OTHER, SELFPAY | PROVIDERS: Visit Provider Obstetrics & Gynecology | DX: Z39.2 Encounter for routine postpartum follow-up (principal) | CPT/HCPCS: 87624 ==